=== PATIENT | male | born 1950 | race Caucasian/White ===

== ENCOUNTER 2016-10-06 08:51 | Day surgery (SDC) | payer MEDICARE ==
[~2016-10-06] VITALS: Ht 177.8 cm; Wt 90.5 kg
[2016-10-06] MEDS ORDERED: TENORMIN 2525 MG/TAB PO (09:10)
[2016-10-06] MEDS ORDERED: OMEGA-3 1000 MG1 CAP PO (09:10)
[2016-10-06] MEDS ORDERED: ASPIRIN E.C. 8181 MG PO (09:11)
[2016-10-06] MEDS ORDERED: MASON NATURAL600 MG PO (09:11)
[2016-10-06 09:31] VITALS: BP 126/79; PULSE 57; TEMP 97.6
[2016-10-06 12:25] VITALS: BP 113/63; PULSE 61; TEMP 97.5
[2016-10-06 12:40] VITALS: BP 116/71; PULSE 59
[2016-10-06] MEDS ORDERED: NORCO 325 MG-51 TAB PO (12:49)
[2016-10-06] MEDS ORDERED: COLACE 100100 MG/CAP PO (12:50)
[2016-10-06] MEDS ORDERED: METAMUCIL3.4 GM/DOS PO (12:51)
[2016-10-06 12:55] VITALS: BP 121/80; PULSE 55
[2016-10-06 13:10] VITALS: BP 126/74; PULSE 59
[2016-10-06 13:40] VITALS: BP 124/78; PULSE 53
== END 2016-10-06 14:00 | disposition home or self-care (01) ==
LOC: SDCO 08:51
DX: K60.5 Anorectal fistula (principal); I10 Essential (primary) hypertension
CPT/HCPCS: J2704; J3010; J7120

== ENCOUNTER → 2017-01-13 | Outpatient (CLI) | payer MEDICARE ==
[~2017-01-13] MED LIST: ASPIRIN E.C. 8181 MG PO; COLACE 100100 MG/CAP PO; MASON NATURAL600 MG PO; METAMUCIL3.4 GM/DOS PO; NORCO 325 MG-51 TAB PO; OMEGA-3 1000 MG1 CAP PO; TENORMIN 2525 MG/TAB PO
[2017-01-13 17:30] LABS: HIV 1/2 Antibodies Non-Reactive; HIV-1p24 Antigen Non-Reactive
== END ==
LOC: COL.LAB 15:22
PROVIDERS: Orthopaedic Surgery
DX: Z01.818 Encounter for other preprocedural examination (principal); M17.12 Unilateral primary osteoarthritis, left knee

== ENCOUNTER → 2017-02-10 | Outpatient (CLI) | payer MEDICARE | LOC: COL.RAD 07:30 | DX: Z13.6 Encounter for screening for cardiovascular disorders (principal) ==

== ENCOUNTER → 2017-04-15 | Outpatient (CLI) | payer MEDICARE | LOC: COL.RAD 11:56 | DX: M67.441 Ganglion, right hand (principal) ==

== ENCOUNTER 2018-04-25 13:12 | Day surgery (SDC) | payer MEDICARE ==
[~2018-04-25] VITALS: Ht 177.8 cm; Wt 90.3 kg
[2018-04-25 14:33] VITALS: BP 139/86; PULSE 82; TEMP 98.4
[2018-04-25 15:35] VITALS: BP 121/79; PULSE 76; TEMP 98
[2018-04-25 15:50] VITALS: BP 110/76; PULSE 69
[2018-04-25 16:05] VITALS: BP 107/75; PULSE 66
[2018-04-25 16:20] VITALS: BP 110/62; PULSE 73
== END 2018-04-25 16:35 | disposition home or self-care (01) ==
LOC: SDCO 13:12
DX: Z12.11 Encounter for screening for malignant neoplasm of colon (principal); K63.5 Polyp of colon; K57.30 Diverticulosis of large intestine without perforation or abscess without bleeding; Z86.010 Personal history of colon polyps; Z88.0 Allergy status to penicillin
CPT/HCPCS: J2250; J3010; J7030

== ENCOUNTER 2018-09-27 13:30 | Emergency (ER) | payer MEDICARE ==
[~2018-09-27] VITALS: Ht 177.8 cm; Wt 87.7 kg
[2018-09-27 13:34] VITALS: TEMP 97.5
[2018-09-27] MEDS ORDERED: ASPIRIN 81M81 MG/TA2 PO (13:49)
[2018-09-27 14:13] LABS: BASO % 0.7 % (0.0-2.0); EOS # 0.1 (0.0-0.7); EOS % 1.8 % (0-4.0); GRAN # 3.5 (1.4-6.5); GRAN % 57.3 % (42.2-75.2); HEMOGLOBIN 16.3 g/dl (13.5-18.0); LYMPH # 1.8 (1.2-3.4); LYMPH % 29.6 % (20.0-51.0); MEAN CELL VOLUME 90 fl (80.0-100.0); MEAN CORPUSCULAR HEMOGLOBIN 32 pg (27.0-31.0); MEAN CORPUSCULAR HGB CONC 35 g/dl (33.0-37.0); MONO # 0.6 (0.1-0.6); MONO % 10.3 % (1.7-9.3); PLATELET COUNT 170 K/mm3 (130-400); RED BLOOD COUNT 5.09 M/mm3 (4.20-5.60); REDCELL DISTRIBUTION WIDTH-CV 12.1 % (11.5-14.5)
[2018-09-27 14:15] LABS: INR 1.1 (0.8-3.0)
[2018-09-27 14:21] LABS: ALANINE AMINOTRANSFERASE 25 U/L (21-72); ALBUMIN 4.4 gm/dL (3.5-5.0); ALKALINE PHOSPHATASE 66 U/L (50-136); ANION GAP 9 mmol/L (7-16); AST,SGOT 27 U/L (15-37); BILIRUBIN,TOTAL 0.6 mg/dL (0.0-1.0); BLOOD UREA NITROGEN 16 mg/dL (9-20); CALCIUM 9.2 mg/dL (8.4-10.2); CARBON DIOXIDE 22 mmol/L (22-30); CHLORIDE 105 mmol/L (98-107); CREATININE, serum 0.89 mg/dL (0.66-1.25); GLUCOSE 150 mg/dL (74-106); LIPASE 117 U/L (23-300); POTASSIUM 3.3 mmol/L (3.4-5.0); SODIUM 136 mmol/L (137-145); TOTAL PROTEIN 7.4 gm/dL (6.4-8.2)
[2018-09-27 14:33] LABS: TROPONIN-I < 0.012 ng/mL (0.000-0.035)
[2018-09-27 15:04] VITALS: BP 115/81
[2018-09-27 16:16] VITALS: PULSE 77
== END 2018-09-27 16:18 | disposition home or self-care (01) ==
LOC: COL.ER 13:30
PROVIDERS: Emergency Medicine
DX: R00.2 Palpitations (principal); I10 Essential (primary) hypertension; E87.6 Hypokalemia; R73.9 Hyperglycemia, unspecified; Z79.82 Long term (current) use of aspirin; Z98.890 Other specified postprocedural states
CPT/HCPCS: J2060; J7030; Q9967